=== PATIENT | male | born 1950 | race Caucasian/White ===

== ENCOUNTER 2016-11-26 12:29 | Emergency (ER) | payer OTHER, MEDICAID ==
[~2016-11-26] VITALS: Ht 180.3 cm; Wt 93.5 kg
[2016-11-26 12:33] VITALS: Ht 180.3 cm; Wt 93.5 kg
[2016-11-26] MEDS ORDERED: KETOROLAC 30 MG INJ IM STA (12:54)
[2016-11-26] MEDS ORDERED: TRIMETHOPRIM/SULFAMETHOX (DS) TAB PO ONE (13:00)
[2016-11-26] MEDS ORDERED: CEPHALEXIN 500 MG CAP PO ONE (13:00)
[2016-11-26] MEDS ORDERED: IBUP-1542 PO (13:49)
[2016-11-26] MEDS ORDERED: CEPH-443 PO (13:49)
[2016-11-26] MEDS ORDERED: HYDR-902 PO (13:49)
[2016-11-26] MEDS ORDERED: SULF1TAB31 PO (13:49)
--- NOTE | 2016-11-26 13:54 | RADRPT ---
PROCEDURE: XR Wrist. CLINICAL INDICATION: Right wrist pain TECHNIQUE: AP, lateral and oblique views of the right wrist were performed. COMPARISON: No prior studies are available for comparison. FINDINGS: There is no acute fracture or dislocation. Alignment is normal. There are mild degenerative changes at the first carpometacarpal joint. There are no definite osseou s erosive changes identified. There is diffuse soft tissue swelling about the wrist with pain chondral calcinosis fibrocartilage. IMPRESSION: 1. Diffuse nonspecific soft tissue swelling about the wrist with faint chondrocalcinosis most promin ent at the triangular fibrocartilage, query CPPD/pseudogout. 2. No radiographic evidence of acute fracture noting mild first carpometacarpal joint osteoarthrosis . RPTAT: [facility] .Yariel Euceda MD, Date Time Electronically viewed and signed by .Yariel Euceda MD, on 11/26/2016 13:54 .K/
--- NOTE | 2016-11-26 14:19 | ERD ---
ER Documentation Chief Complaint Date/Time DATE: 11/26/16 TIME: 14:16 Chief Complaint PT HAS RIGHR ARM AND HAND PAIN AND SWELLING, REDNESS X 4 DAYS,DENIES TRAUMA HPI Patient is a 66-year-old male with hypertension and diabetes who presents with right wrist and hand pain. 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 He denies trauma. He has no fevers. He has pain with any range of motion. He tried using ice to reduce swelling. He is right-handed. He does have a primary doctor but has not spoken that doctor as of yet. ROS All systems reviewed and are negative except as per history of present illness. Medications Home Meds Active Scripts Sulfamethoxazole/Trimethoprim* (Bactrim Ds* Tablet) 1 Each Tablet, 1 TAB PO BID , #14 TAB Prov:DUYEN BEGUM MD 11/26/16 Cephalexin* (Keflex*) 500 Mg Capsule, 500 MG PO QID for 7 Days, CAP Prov:DUYEN BEGUM MD 11/26/16 Hydrocodone/Acetaminophen ([place] 10-325 Tablet) 1 Each Tablet, 1 TAB PO Q6H Y for PAIN, #7 TAB Prov:DUYEN BEGUM MD 11/26/16 Ibuprofen* (Motrin*) 600 Mg Tab, 600 MG PO Q8, #30 TAB Prov:DUYEN BEGUM MD 11/26/16 PMhx/Soc Medical and Surgical Hx: pt denies Medical Hx, pt denies Surgical Hx Hx Alcohol Use: Yes Hx Substance Use: No Hx Tobacco Use: No Smoking Status: Never smoker FmHx Family History: diabetes Physical Exam Vitals Vital Signs Date Time Temp Pulse Resp B/P Pulse Ox O2 Delivery O2 Flow Rate FiO2 11/26/16 12:33 98.8 85 18 137/88 96 Physical Exam Const: Moderate distress secondary to pain Head: Atraumatic Eyes: Normal Conjunctiva ENT: Normal External Ears, Nose and Mouth. Neck: Full range of motion..~ No meningismus. Resp: Clear to auscultation bilaterally Cardio: Regular rate and rhythm, no murmurs Abd: Soft, non tender, non distended. Normal bowel sounds Skin: Erythema and warmth to touch to the right wrist and hand Back: No midline or flank tenderness Ext: Swelling to the right wrist and right hand without any signs of flexor tenosynovitis, capillary refill less than 2 seconds in all 5 fingers of the right hand Neur: Awake and alert, sensation intact to the 5 fingers of the right hand Psych: Normal Mood and Affect Results 24 hrs Current Medications Medications (Trade) Dose Ordered Sig/Jojo Route PRN Reason Start Time Stop Time Status Last Admin Dose Admin Ketorolac Tromethamine (Toradol) 30 mg ONCE STAT IM 11/26/16 12:54 11/26/16 12:56 DC 11/26/16 13:05 Cephalexin (Keflex) 500 mg ONCE ONCE PO 11/26/16 13:00 11/26/16 13:01 DC 11/26/16 13:05 Trimethoprim/ Sulfamethoxazole (Bactrim (Ds)) 1 tab ONCE ONCE PO 11/26/16 13:00 11/26/16 13:01 DC 11/26/16 13:05 Procedures/MDM X-ray Wrist 3V Interpreted by me: Scaphoid: Normal Bones: No fracture Joints: No dislocation Foreign body: None Splint Note Type: Velcro volar splint Location: Right upper extremity Indication: Right wrist pain and infection Splint Assessment: Neurovascularly intact post splint placement with good fit. Patient is a 66-year-old male presents with what appears to be an acute right upper extremity cellulitis. The patient has swelling, erythema, and warmth to touch to the right wrist and hand. There is no sign of flexor tenosynovitis. I did do an x-ray which did not show any signs of fracture or dislocation or obvious osteomyelitis. I spoke to the patient and offered him admission for IV antibiotics but he said that he would prefer to go home at this time. I do believe that an outpatient course of Keflex and Bactrim is a reasonable treatment the patient will also be given ibuprofen and [place] for pain. It is possible that he has gout or pseudogout as well. I doubt flexor tenosynovitis or other serious deep space infection of the hand. The patient will need to follow-up closely with his primary doctor within 24-48 hours and could return if symptoms worsen. Departure Diagnosis: Primary Impression: Cellulitis Site of cellulitis: extremity Site of cellulitis of extremity: upper extremity Laterality: right Qualified Code: L03.113 - Cellulitis of right upper extremity Additional Impression: Pain of hand Laterality: right Qualified Code: M79.641 - Pain of right hand Condition: Fair Patient Instructions: Cellulitis Referrals: Your doctor Additional Instructions: Call your primary care doctor TOMORROW for an appointment during the next 1-2 days.See the doctor sooner or return here if your condition worsens before your appointment time. DUYEN BEGUM MD Nov 26, 2016 14:19
== END 2016-11-26 14:24 | disposition home or self-care (01) ==
LOC: FTE 12:29
DX: L03.113 Cellulitis of right upper limb (principal)
CPT/HCPCS: 29125; 73110; 96372; 99284; J1885